=== PATIENT | female | born 1960 | race Caucasian/White ===

== ENCOUNTER 2018-12-08 09:44 | Emergency (ER) | payer BC ==
[~2018-12-08] VITALS: Ht 162.6 cm; Wt 79.4 kg
--- NOTE | 2018-12-08 10:40 | PHYS DOC ---
Past History Past Medical History: No Pertinent History Past Surgical History: Hysterectomy, Other Alcohol Use: None Drug Use: None Adult General Chief Complaint Chief Complaint: CHEST PAIN HPI HPI Patient is a 58 year old female who presents with right sided chest pain. The pain began around 9:30 this morning while the patient was sitting at her desk at work. She states she had chest heaviness that radiated into her neck. She denies palpitations, stabbing sensations, sweating, lightheadedness, numbness, tingling, or shortness of breath. She has never had anything like this in the past. She states she has been under a lot of stress recently after the of her brother at the end of November and her recent return to work. She walked from her desk to the car and into the emergency room with no worsening of her symptoms Review of Systems Review of Systems Constitutional: Denies fever or chills [] Eyes: Denies change in visual acuity, redness, or eye pain [] HENT: Denies nasal congestion or sore throat [] Respiratory: Denies cough or shortness of breath [] Cardiovascular: No additional information not addressed in HPI [] GI: Denies abdominal pain, nausea, vomiting, bloody stools or diarrhea [] : Denies dysuria or hematuria [] Musculoskeletal: Denies back pain or joint pain [] Integument: Denies rash or skin lesions [] Neurologic: Denies headache, focal weakness or sensory changes [] Endocrine: Denies polyuria or polydipsia [] All other systems were reviewed and found to be within normal limits, except as documented in this note. Allergies Allergies Allergies Coded Allergies Type Severity Reaction Last Updated Verified Tetanus Vaccines and Toxoid Allergy Unknown 12/08/18 Yes amoxicillin Allergy Unknown 12/08/18 Yes Physical Exam Physical Exam Constitutional: Well developed, well nourished, no acute distress, non-toxic appearance. [] HENT: Normocephalic, atraumatic, bilateral external ears normal, oropharynx moist, no oral exudates, nose normal. [] Eyes: PERRLA, EOMI, conjunctiva normal, no discharge. [] Neck: Normal range of motion, no tenderness, supple, no stridor. [] Cardiovascular:Heart rate regular rhythm, no murmur [] Lungs & Thorax: Bilateral breath sounds clear to auscultation [] Abdomen: Bowel sounds normal, soft, no tenderness, no masses, no pulsatile masses. [] Skin: Warm, dry, no erythema, no rash. [] Back: No tenderness, no CVA tenderness. [] Extremities: No tenderness, no cyanosis, no clubbing, ROM intact, no edema. [] Neurologic: Alert and oriented X 3, normal motor function, normal sensory function, no focal deficits noted. [] Psychologic: Affect normal, judgement normal, mood normal. [] Current Patient Data Vital Signs Vital Signs Date Time Temp Pulse Resp B/P (MAP) Pulse Ox O2 Delivery O2 Flow Rate FiO2 12/08/18 09:52 98.5 60 18 99 Room Air EKG EKG Sinus rhythm with a rate of 52[] Radiology/Procedures Radiology/Procedures []AP chest, 12/08/2018: HISTORY: Chest pain The heart size and pulmonary vascularity are normal. No pulmonary infiltrate is seen. There is no evidence of pleural fluid. IMPRESSION: No acute cardiopulmonary abnormality is detected. Electronically signed by: Shai Luna MD (12/08/2018 10:51 AM) [facility] DICTATED AND SIGNED BY: SHAI LUNA MD DATE: 12/08/18 1051 CC: STORM SHANKS MD; PCP,NO ~ Course & Med Decision Making Course & Med Decision Making Pertinent Labs and Imaging studies reviewed. (See chart for details) []58-year-old female presenting with chest pain. Just lost a brother apparently found approximately 2 weeks ago compensated story according to her sounds like had vomiting and diarrhea and then has a history of A. fib and heavy alcohol abuse HOWEVER unclear etiology of his exact reason for . Nevertheless patient has a family history of coronary artery disease and a mother who had a CABG about 10 years ago. Heart score is a 3, one for history 1 for age and 1 for risk factors. Troponin negative 2 over several hours of observation the emergency room, EKG looked stone cold normal patient's pain went away in the emergency room she looked quite good she was eager to be discharged home. We talked about the options for follow-up steps which would include admission overnight for observation and stress test versus close outpatient follow-up with her primary care team which includes a primary doctor and a collar fuser. She prefers the latter given the heart score within a reasonable range I think that is okay. This pain does not sound at all like a PE or dissection she was discharged with her in stable condition multiple questions were answered. Dragon Disclaimer Dragon Disclaimer This electronic medical record was generated, in whole or in part, using a voice recognition dictation system. Departure Departure: Impression: Primary Impression: Chest pain Disposition: HOME, SELF-CARE Condition: STABLE Referrals: PCP,GANGA (PCP) STORM SHANKS MD December 08, 2018 10:40
[2018-12-08 10:45] LABS: BASO # 0.1 x10^3/uL (0.0-0.2); BASO % 1 % (0-3); EOS # 0.1 x10^3/uL (0.0-0.7); EOS % 2 % (0-3); HEMATOCRIT 42.3 % (36.0-47.0); HEMOGLOBIN 14.3 g/dL (12.0-15.5); LYMPH # 1.4 x10^3/uL (1.0-4.8); LYMPH % 30 % (24-48); MEAN CORPUSCULAR HEMOGLOBIN 30 pg (25-35); MEAN CORPUSCULAR HGB CONC 34 g/dL (31-37); MEAN CORPUSCULAR VOLUME 88 fL (79-100); MONO # 0.3 x10^3/uL (0.0-1.1); MONO % 7 % (0-9); NEUT # 2.8 x10^3uL (1.8-7.7); NEUT % 60 % (31-73); PLATELET COUNT 179 x10^3/uL (140-400); RED BLOOD COUNT 4.81 x10^6/uL (3.50-5.40); RED CELL DISTRIBUTION WIDTH 13.1 % (11.5-14.5); WHITE BLOOD COUNT 4.7 x10^3/uL (4.0-11.0)
[2018-12-08 10:53] LABS: ALBUMIN 3.9 g/dL (3.4-5.0); ALBUMIN/GLOBULIN RATIO 1.1 (1.0-1.7); CALCIUM 9.2 mg/dL (8.5-10.1); CREATININE 0.9 mg/dL (0.6-1.0); GFR 64.1; POTASSIUM 3.8 mmol/L (3.5-5.1); TOTAL BILIRUBIN 0.4 mg/dL (0.2-1.0); TOTAL PROTEIN 7.5 g/dL (6.4-8.2)
--- NOTE | 2018-12-08 10:54 | RAD ---
AP chest, 12/08/2018: HISTORY: Chest pain The heart size and pulmonary vascularity are normal. No pulmonary infiltrate is seen. There is no evidence of pleural fluid. IMPRESSION: No acute cardiopulmonary abnormality is detected. Electronically signed by: Shai Luna MD (12/08/2018 10:51 AM) [facility]
[2018-12-08] MEDS: ASPIRIN 81 MG TAB.CHEW PO ONE (11:01)
[2018-12-08 13:42] VITALS: BP 110/68
--- NOTE | 2018-12-08 17:09 | EKG ---
[address] [address] Test Date: 2018-12-08 Test Time: 09:55:41 Pat Name: GOSIA ALAS Department: Room: Gender: F Special Service Representative: : 1960 Requested By: STORM SHANKS Order Number: [id number] Reading MD: Alberto Ardon MD Measurements Intervals [place] Rate: 52 P: 43 WV: 148 QRS: 22 QRSD: 84 T: 25 QT: 440 QTc: 411 Interpretive Statements SINUS RHYTHM Electronically Signed On 01-03-2019 9:28:13 CDT by Alberto Ardon MD
== END 2018-12-08 14:00 | disposition home or self-care (01) ==
LOC: ER 09:50
DX: R07.89 Other chest pain (principal); F43.9 Reaction to severe stress, unspecified; Z88.1 Allergy status to other antibiotic agents; Z88.7 Allergy status to serum and vaccine
CPT/HCPCS: 36415; 71045; 80053; 84484; 85025; 93005; 99285